=== PATIENT | female | born 1980 | race Caucasian/White ===

== ENCOUNTER 2020-12-06 20:45 | Emergency (ER) | payer MEDICAID | END 2020-12-06 22:17 | LOC: MADERS 20:45 | DX: S00.83XA Contusion of other part of head, initial encounter (principal); S70.02XA Contusion of left hip, initial encounter; G10 Huntington's disease; Z79.899 Other long term (current) drug therapy; Z79.891 Long term (current) use of opiate analgesic; W19.XXXA Unspecified fall, initial encounter | CPT/HCPCS: 99283 ==